=== PATIENT | male | born 1960 | race African-American/Black ===

== ENCOUNTER 2019-11-18 11:22 | Emergency (ER) | payer MEDICARE ==
[~2019-11-18] VITALS: Ht 157.5 cm; Wt 64.4 kg
[2019-11-18] MEDS ORDERED: HUMULIN R100 UNIT/1 SUBQ (11:26)
--- NOTE | 2019-11-18 11:35 | Emergency Room Report ---
History of Present Illness General Chief Complaint: Abnormal Labs Source: Patient, EMS Present Illness HPI Disclaimer: Please note that this report is being documented using DRAGON technology. This can lead to erroneous entry secondary to incorrect interpretation by the dictating instrument. HPI: 59-year-old male with a history of type 2 diabetes on insulin and Humulin presents for evaluation of altered mental status and hypoglycemia. Patient states he has been in his usual state of health but fell asleep early and did not check his blood sugars until approximately 1:30 AM last night when he woke up. His blood sugar was 279 and gave himself 3 to 4 units of regular insulin followed by 27 units of Humulin which is his typical regimen. He woke up early this morning and fell back asleep without eating. His home health nurse came to his house approximately 10 AM and could not get in prompting her to call EMS. EMS found him altered and confused on his couch with blood sugar approximately 40. He was given glucagon and oral glucose with improvement in his symptoms. He arrives with a blood sugar in the 80s. He is awake, alert answering questions appropriately. He denies any chest pain, palpitations, headache, visual changes. He feels mildly tremulous and reports being hungry. Denies any recent nausea, vomiting, diarrhea or changes in medications. PMH: Type 2 diabetes PSH: Reviewed Allergies: Sulfa medications Social Hx: Denies drug or alcohol abuse Allergies: Coded Allergies: SULFA (SULFONAMIDE ANTIBIOTICS) (Verified Allergy, Unknown, 11/18/19) COVID-19 Screening Contact w/high risk pt: No Recent Travel to affected area: No Experienced COVID-19 symptoms?: No COVID-19 Testing performed [employer]: No Nursing Documentation-PMH Past Medical History: No History, Except For Hx Diabetes: Yes Review of Systems All Other Systems: negative except mentioned in HPI Physical Exam Vital Signs Date Time Temp Pulse Resp B/P (MAP) Pulse Ox O2 Delivery O2 Flow Rate FiO2 11/18/19 11:16 96.6 86 20 164/77 (106) 100 Room Air General: Awake and alert, no acute distress HEENT: NC/AT. EOMI. Cardiovascular: Tachycardic. S1 and S2 normal Resp: Normal work of breathing. Abdomen: Abdomen is soft, nondistended. Nontender Skin: Intact. No abrasions, laceration or rash over the exposed skin MSK: Normal tone and bulk. Moving all extremities. No obvious deformity. Neuro: Awake and alert. Mentating appropriately. Medical Decision Making Diagnostic Impression: Primary Impression: Hypoglycemia ER Course 59-year-old male presents for evaluation of altered mental status and hypoglycemia. Differential includes was not limited to hyperglycemia, overmedication, dehydration, electrolyte abnormality, anemia to name a few. Arrives a stable vital signs, awake and alert answering questions appropriately. Hypoglycemia likely related to him receiving his medications late last night and not eating this morning. EKG shows sinus tachycardia but he is mildly tremulous which he states is from not eating. Will provide food and check basic labs. 1250: Labs show a glucose of 170 and are otherwise within normal limits. The patient is eating and drinking well in the emergency department. He has no complaints at this time would like to return home. His blood pressure was elevated to the 170s but remains asymptomatic. He states he missed his doses of lisinopril and amlodipine this morning. I offered to give him his home medications but he declined stating he would take them when he returns home. Will follow with his PMD. Discussed reasons to return to the emergency department. He understands and agrees with this treatment plan. Laboratory Tests Test 11/18/19 11:45 White Blood Count 8.6 K/UL (4.8-10.8) Red Blood Count 3.88 M/UL (4.70-6.10) L Hemoglobin 11.6 G/DL (14.2-18.0) L Hematocrit 35.5 % (42.0-52.0) L Mean Corpuscular Volume 92 FL (80-99) Mean Corpuscular Hemoglobin 29.8 PG (27.0-31.0) Mean Corpuscular Hemoglobin Concent 32.6 G/DL (32.0-36.0) Red Cell Distribution Width 13.1 % (11.6-14.8) Platelet Count 320 K/UL (150-450) Mean Platelet Volume 5.8 FL (6.5-10.1) L Neutrophils (%) (Auto) 70.3 % (45.0-75.0) Lymphocytes (%) (Auto) 22.2 % (20.0-45.0) Monocytes (%) (Auto) 4.5 % (1.0-10.0) Eosinophils (%) (Auto) 1.2 % (0.0-3.0) Basophils (%) (Auto) 1.9 % (0.0-2.0) Sodium Level 145 MMOL/L (136-145) Potassium Level 4.0 MMOL/L (3.5-5.1) Chloride Level 107 MMOL/L (98-107) Carbon Dioxide Level 21 MMOL/L (21-32) Anion Gap 17 mmol/L (5-15) H Blood Urea Nitrogen 18 mg/dL (7-18) Creatinine 1.6 MG/DL (0.55-1.30) H Estimated Glomerular Filtration Rate 53.6 mL/min (>60) Glucose Level 170 MG/DL (74-106) H Calcium Level 9.5 MG/DL (8.5-10.1) EKG Diagnostic Results EKG Time: 11:26 Rate: tachycardiac Rhythm: NSR ST Segments: no acute changes Other Impression Sinus tachycardia, normal axis, normal intervals, no ST segment changes. Rhythm Strip Diag. Results Rhythm Strip Time: 11:26 EP Interpretation: yes Rate: 100s Rhythm: no PVC's, no ectopy Last Vital Signs Date Time Temp Pulse Resp B/P (MAP) Pulse Ox O2 Delivery O2 Flow Rate FiO2 11/18/19 11:16 96.6 86 20 164/77 (106) 100 Room Air Disposition: HOME, SELF-CARE Condition: Stable Gumaro Solo MD November 18, 2019 11:35
[2019-11-18 11:51] LABS: BASOPHILS % (AUTO) 1.9 % (0.0-2.0); EOSINOPHILS % (AUTO) 1.2 % (0.0-3.0); HEMATOCRIT 35.5 % (42.0-52.0); HEMOGLOBIN 11.6 G/DL (14.2-18.0); LYMPHOCYTES % (AUTO) 22.2 % (20.0-45.0); MEAN CORPUSCULAR VOLUME 92 FL (80-99); MONOCYTES % (AUTO) 4.5 % (1.0-10.0); NEUTROPHILS % (AUTO) 70.3 % (45.0-75.0); PLATELET COUNT 320 K/UL (150-450); RED BLOOD COUNT 3.88 M/UL (4.70-6.10); RED CELL DISTRIBUTION WIDTH 13.1 % (11.6-14.8); WHITE BLOOD COUNT 8.6 K/UL (4.8-10.8)
[2019-11-18 12:16] LABS: ANION GAP 17 mmol/L (5-15); BLOOD UREA NITROGEN 18 mg/dL (7-18); CALCIUM 9.5 MG/DL (8.5-10.1); CARBON DIOXIDE 21 MMOL/L (21-32); CHLORIDE 107 MMOL/L (98-107); CREATININE 1.6 MG/DL (0.55-1.30); SODIUM 145 MMOL/L (136-145)
[2019-11-18 12:49] VITALS: BP 177/80
[2019-11-18 13:23] VITALS: BP 162/80
[2019-11-18 13:39] VITALS: BP 154/76
[2019-11-18 14:01] VITALS: BP 154/76
== END 2019-11-18 15:00 | disposition home or self-care (01) ==
LOC: EDBD 11:22 → EMR 11:45
DX: E11.649 Type 2 diabetes mellitus with hypoglycemia without coma (principal); Z79.4 Long term (current) use of insulin; Z88.2 Allergy status to sulfonamides
CPT/HCPCS: 36415; 80048; 85025; 99283